=== PATIENT | female | born 1995 | race Caucasian/White ===

== ENCOUNTER → 2017-06-18 | Outpatient (CLI) | payer BC ==
[~2017-06-18] MED LIST: NORCO 325 MG-51 TAB PO
== END ==
LOC: BHSO 13:22
DX: F41.1 Generalized anxiety disorder (principal)

== ENCOUNTER → 2017-08-14 | Outpatient (CLI) | payer BC | LOC: BHSO 10:05 | DX: F41.1 Generalized anxiety disorder (principal) ==